=== PATIENT | male | born 1980 | race Caucasian/White ===

== ENCOUNTER 2017-09-16 12:24 | Outpatient (CLI) | payer BC ==
--- NOTE | 2017-09-16 15:02 | ULT ---
TESTICULAR ULTRASOUND: Date: 09/16/17 HISTORY: Testicular pain. FINDINGS: Right testicle measures 5.3 cm x 3.4 cm x 2.8 cm. Left testicle measures 5.2 cm x 3.5 cm x 2.9 cm. Th ere is slight heterogeneity of each testicle, which is a symmetric finding bilaterally. No testicular mass is present. There are a few very tiny punctate foci of increased echogenicity in the left testi cindy, likely related to testicular microlithiasis. Doppler evaluation of each testicle with spectral analysis and color flow evaluation demonstrates art erial and venous flow in each testicle. There is a small hypoechoic structure within the right epididymis measuring 0.5 cm, which may represe nt a small spermatocele. There is also a small anechoic structure seen in the left epididymal head me asuring 0.3 cm, probably related to a small epididymal cyst. There is a small left hydrocele with physiologic amount of fluid adjacent to the right testicle. IMPRESSION: 1. 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 Testicles otherwise have a normal sonographi c appearance with arterial and venous flow documented in each testicle. 2. Small epididymal cyst versus spermatocele in the right epididymal head with tiny epididymal cyst in the left epididymal head. 3. Very small left hydrocele. POS: [facility]
== END 2017-09-16 12:25 | disposition home or self-care (01) ==
LOC: ULT 12:24
PROVIDERS: ATTEND Family Medicine
DX: N50.819 Testicular pain, unspecified (principal); N43.3 Hydrocele, unspecified
CPT/HCPCS: 76870; 93976

== ENCOUNTER 2018-09-22 12:18 | Day surgery (SDC) | payer BC ==
[2018-09-21 11:25] VITALS: BMI 39.9
[~2018-09-22 12:18] MED LIST: Dexamethasone 20 MG/5 ML VIAL ONE; Glycopyrrolate 0.2 MG/ML 5 ML SYRINGE ONE; Lidocaine 1% PF 5 ML VIAL ONE; Ondansetron PF 4 MG/2 ML Vial ONE; PROPOFOL 200 MG/20 ML VIAL ONE; Rocuronium Bromide 10 MG/ML (10ML VIAL) ONE
[2018-09-22] MEDS ORDERED: Oxymetazoline HCl 0.05% ( 15 ML ) ONE (12:43)
[2018-09-22] MEDS ORDERED: Bacitracin Zinc Ointment 30 gm TUBE ONE (13:57)
[2018-09-22] MEDS ORDERED: Oxymetazoline HCl 0.05% (30 ML BOT) ONE (13:57)
[2018-09-22] MEDS ORDERED: Lidocaine 1% w/Epinephrine 1:100K 20 ML VIAL ONE (13:57)
[2018-09-22] MEDS ORDERED: Fentanyl 100 MCG/2 ML VIAL ONE ×2 (13:59→16:07)
[2018-09-22] MEDS ORDERED: Midazolam HCl 2 mg/2 ml Vial ONE (13:59)
[2018-09-22] MEDS ORDERED: Meperidine HCl/PF 25 MG/ML VIAL ONE (15:45)
[2018-09-22] MEDS ORDERED: Hydrocodone-Acetamin 15 ML UDCUP ONE (17:15)
--- NOTE | 2018-09-23 13:02 | OP ---
DATE OF PROCEDURE: 09/22/2018 PREOPERATIVE DIAGNOSES: Chronic sinusitis, nasal polyposis, bilateral champ bullosa, deviated septum with spur, hypertrophied inferior turbinates. POSTOPERATIVE DIAGNOSES: Chronic sinusitis, nasal polyposis, bilateral champ bullosa, deviated septum with spur, hypertrophied inferior turbinates. PROCEDURES PERFORMED: 1. Bilateral nasal endoscopy with resection of champ bullosa. 2. Bilateral nasal endoscopy with total ethmoidectomy. 3. Bilateral nasal endoscopy with maxillary antrostomy. 4. Bilateral nasal endoscopy with sphenoidotomy. 5. Bilateral nasal endoscopy with frontal sinusotomy. 6. Septoplasty. 7. Bilateral nasal endoscopy with submucosal resection of inferior turbinates. DESCRIPTION OF PROCEDURE: BILATERAL NASAL ENDOSCOPY WITH RESECTION OF CHAMP BULLOSA: The champ bullosa was identified and entered with a sickle blade. The lateral aspect of the champ bullosa was meticulously resected while leaving the medial most aspect to form the new middle turbinate. Attention was made not to violate the mucosa. The straight biting punches and micro-debrider were used to remove shrouds of mucosa and bony debris. BILATERAL NASAL ENDOSCOPY WITH TOTAL ETHMOIDECTOMY: The anterior face of the ethmoid bulla was entered and with the micro-debrider, dissection continued posteriorly to the ground lamella. The limits of dissection included the insertion of the middle turbinate, medial orbital wall, and base of skull. We similarly identified the frontal recess and removed shrouds of bone and debris in that region to obtain patency into the agger nasi region and frontal recess. We then entered the ground lamella and its anteroinferior aspect and proceeded posteriorly, opening the posterior ethmoid air-cell system. Again, the limits of dissection included the base of skull and medial orbital wall. BILATERAL NASAL ENDOSCOPY WITH MAXILLARY ANTROSTOMY: The uncinate was then identified and the extent of the uncinate was appreciated by out-fracturing the uncinate with the ball-tip probe. We then used the sickle blade to disarticulate the uncinate from the lateral nasal wall. This was then removed with straight biting and upbiting punches with the remaining shrouds of mucosa and bony septum removed with the micro-debrider. The natural os of the maxillary sinus was then identified and enlarged with the maxillary punches and back biting forceps. BILATERAL NASAL ENDOSCOPY WITH SPHENOIDOTOMY: The anterior face of the sphenoid was identified and entered in its extreme anteroinferior aspect. A sphenoid punch was then used to enlarge the sphenoidotomy and no injury to the optic nerve or internal carotid artery occurred. BILATERAL NASAL ENDOSCOPY WITH FRONTAL SINUSOTOMY: Following the ethmoidectomy, we then turned our attention to the frontal nasal recess. The agger nasi cells were addressed and the frontal recess was exposed. The natural opening to the frontal sinus was identified. At this point, any obstructing shrouds of mucosa and bony fragments were removed with a curved microdebrider. The wound was then examined and found to be free of any obstructing debris. We then turned our attention to the contralateral side and performed a similar procedure again under endoscopic visualization using a 45-degree scope. We were able to visualize the frontal recess. Obstructing shrouds of mucosa and bone were removed with a microdebrider. The natural os of frontal sinus was identified and enlarged and irrigated. At this point, the frontal sinusotomy was completed and we turned to the next area of concern. SEPTOPLASTY: After local anesthesia was infiltrated into the submucoperichondrial plane, a standard [place] incision was made with a #15 blade down to the level of the septal cartilage. The caudal elevator was used to elevate the mucoperichondrium from the underlying cartilage. We then proceeded beyond the bony cartilaginous junction and elevated the bony periosteum as well. Great attention was paid to the spur to prevent rent formation in the septal flap. A transcartilaginous incision was then made, while preserving an adequate dorsal and caudal cartilaginous strut for tip support. The deformed cartilage was removed and disarticulated from the bony cartilaginous junction and maxillary crest. This was placed in saline and would later be crushed and returned to the mucoperichondrial envelope. We then elevated the contralateral periosteum from the bony cartilaginous region and removed the deformed portions of the bone and bony spurs. The cartilage was then crushed and placed back into the mucoperichondrial envelope and the mucosa was re-approximated with a quilting stitch composed of rapidly absorbent gut suture. The [place] incision was also closed with interrupted gut suture. At the completion of the case, Leigh splints were placed and suture secured to the caudal septum. BILATERAL NASAL ENDOSCOPY WITH SUBMUCOSAL RESECTION OF INFERIOR TURBINATES: After consent was obtained, the patient was identified, brought to the operating room, and placed on the operating room table in the supine position. Consent was obtained, notifying the patient of the possibility of additional infections, bleeding, brain injury, and eye/orbital injury. The patient was placed on the operating room table, and general endotracheal anesthesia and intravenous access was obtained. The patient was then positioned, prepped and draped for endoscopic sinus surgery. Nasal preparation included trimming nasal vestibular hairs and spraying in topical Afrin. We then placed Afrin topical solution on nasal pledgets and strategically located them intranasally. The perinasal mucosa was injected with 1% lidocaine with 1:100,000 epinephrine in the submucoperichondrial plane of the septum, lateral nasal wall, and anterior to the uncinate. The patient was then prepped and draped in a sterile fashion and positioned for endoscopic sinus surgery. With the 0-degree endoscope, the patient underwent systematic nasal endoscopy. There were no suspicious internasal masses or lesions identified. We then focused our attention to the osteomeatal complex region under the middle turbinate. The inferior turbinates were visualized with a 0 degree endoscope and outfractured with a Fisher elevator. The inferior medial aspect was cauterized with the electrocautery. Hemostasis was obtained . After adequate airway was established, we turned our attention to the contralateral side and used a similar procedure. Again, a Esdras elevator was used to outfracture inferior turbinates under endoscopic visualization. With a suction cautery, the free inferior medial aspect was cauterized under direct visualization along the length of the inferior turbinate. At this point, we then turned our attention to the contralateral side and proceeded with endoscopic sinus surgery. At the completion of the case, Rice keel splints were placed in the ethmoid cavities after the ethmoidectomy. There were no complications. The patient tolerated the procedure well and was discharged to the recovery room in stable condition prior to return to the preoperative day stay with ultimate discharge home. Prescriptions for pain medication and antibiotics were provided. The patient received intramuscular Depo-Medrol during the case. Job ID: [id number]
== END 2018-09-22 18:10 | disposition home or self-care (01) ==
LOC: SDC 12:18
PROVIDERS: ATTEND Specialist
PROC: 09SL8ZZ Reposition Nasal Turbinate, Via Natural or Artificial Opening Endoscopic (ICD-10-PCS; principal; 2018-09-22)
PROC: 099T8ZZ Drainage of Left Frontal Sinus, Via Natural or Artificial Opening Endoscopic (ICD-10-PCS; principal; 2018-09-22)
PROC: 099S8ZZ Drainage of Right Frontal Sinus, Via Natural or Artificial Opening Endoscopic (ICD-10-PCS; principal; 2018-09-22)
PROC: 09SM0ZZ Reposition Nasal Septum, Open Approach (ICD-10-PCS; principal; 2018-09-22)
PROC: 099X8ZZ Drainage of Left Sphenoid Sinus, Via Natural or Artificial Opening Endoscopic (ICD-10-PCS; principal; 2018-09-22)
PROC: 099W8ZZ Drainage of Right Sphenoid Sinus, Via Natural or Artificial Opening Endoscopic (ICD-10-PCS; principal; 2018-09-22)
PROC: 09TV8ZZ Resection of Left Ethmoid Sinus, Via Natural or Artificial Opening Endoscopic (ICD-10-PCS; principal; 2018-09-22)
PROC: 09TL8ZZ Resection of Nasal Turbinate, Via Natural or Artificial Opening Endoscopic (ICD-10-PCS; principal; 2018-09-22)
PROC: 09TU8ZZ Resection of Right Ethmoid Sinus, Via Natural or Artificial Opening Endoscopic (ICD-10-PCS; principal; 2018-09-22)
PROC: 099R8ZZ Drainage of Left Maxillary Sinus, Via Natural or Artificial Opening Endoscopic (ICD-10-PCS; principal; 2018-09-22)
PROC: 099Q8ZZ Drainage of Right Maxillary Sinus, Via Natural or Artificial Opening Endoscopic (ICD-10-PCS; principal; 2018-09-22)
DX: J32.9 Chronic sinusitis, unspecified (principal); J33.8 Other polyp of sinus; J34.89 Other specified disorders of nose and nasal sinuses; J34.2 Deviated nasal septum; J34.3 Hypertrophy of nasal turbinates; F32.9 Major depressive disorder, single episode, unspecified; F90.9 Attention-deficit hyperactivity disorder, unspecified type; Z79.899 Other long term (current) drug therapy
CPT/HCPCS: J1100; J2001; J2175; J2250; J2405; J2704; J3010

== ENCOUNTER 2019-06-04 19:14 | Emergency (ER) | payer BC ==
[2019-06-04] MEDS ORDERED: Morphine 10 MG/ML VIAL ONE ×2 (19:39→20:44)
[2019-06-04] MEDS ORDERED: Ondansetron PF 4 MG/2 ML Vial ONE (19:39)
[2019-06-04 19:49] LABS: #Basophils 0.1 thou/uL (0.0-0.2); #Eosinphils 0.4 thou/uL (0.0-0.7); #Lymphocytes 4.3 thou/uL (1.20-3.40); #Neutrophils 6.3 thou/uL (1.40-6.50); %Basophils 1.1 % (0.0-1.0); %Lymphocytes 35.4 % (21.0-51.0); %Monocytes 8.1 % (0.0-10.0); %Neutrophils 52.4 % (42.0-75.0); Hemoglobin 15.3 g/dL (14.0-18.0); Mean Corpuscular Hemoglobin 28.7 pg (27.0-31.0); Mean Corpuscular Volume 84.5 fL (78.0-98.0); Mean Platelet Volume 9.1 fL (7.4-10.4); Platelet Count 256 thou/uL (130-400); RBC Distribution Width 11.4 % (11.5-14.5); Red Blood Cell (RBC) Count 5.32 mill/uL (4.70-6.10); White Blood Cell (WBC) Count 12.1 thou/uL (4.8-10.8)
[2019-06-04 20:03] LABS: ALT (SGPT) 27 U/L (8-55); AST (SGOT) 18 U/L (5-34); Albumin 4.3 g/dL (3.5-5.0); Alkaline Phosphatase 57 U/L (40-110); Anion Gap 16 mmol/L (10-20); BUN (Urea Nitrogen) 19 mg/dL (8.9-20.6); Bilirubin, Total 0.4 mg/dL (0.2-1.2); Calc. Creatinine Clearance 0 mL/min (70-130); Calcium 8.7 mg/dL (7.8-10.44); Carbon Dioxide 24 mmol/L (22-29); Chloride 105 mmol/L (98-107); Estimated GFR-MDRD 47; Globulin 2.7 g/dL (2.4-3.5); Glucose 102 mg/dL (70-105); Potassium 3.6 mmol/L (3.5-5.1); Sodium 141 mmol/L (136-145)
[2019-06-04 20:09] LABS: Bilirubin Negative (Negative); Blood, Urine Small (Negative); Clarity Clear (Clear); Glucose, Urine (Dipstick) Negative (Negative); Leukocyte Negative (Negative); Nitrite Negative (Negative); Protein, Urine (Dipstick) Negative (Neg-Trace); Urobilinogen 0.2 mg/dL (Less than 2)
[2019-06-04 20:13] LABS: Bacteria/HPF Rare-Few HPF (None Seen); Squamous Epithelial None Seen HPF (0-3); WBC/HPF None Seen HPF (0-3)
[2019-06-04] MEDS ORDERED: HYDROcodone/Acetaminophen 10/325 mg Tablet ONE (21:29)
--- NOTE | 2019-06-04 21:38 | CT ---
CT ABDOMEN AND PELVIS WITHOUT CONTRAST: Date: 06/04/19 HISTORY: Left-sided abdominal and flank pain. FINDINGS: Absence of oral and IV contrast reduces the sensitivity of exam, particularly for evaluation of solid organs and bowel. The lung bases are unremarkable. No free air or free fluid is seen in the abdomen or pelvis. No calci fied gallstones are noted. A tiny appendicolith is seen. The appendix is otherwise normal. No calculi seen in either kidney, right ureter, or the urinary bladder. There is a 4 mm calculus in t he left UPJ with mild left-sided hydronephrosis. No right-sided hydroureteronephrosis is seen. There are small bilateral fat-containing inguinal hernia. No acute osseous abnormalities noted. IMPRESSION: 4 mm left UPJ calculus with mild hydronephrosis. POS: [facility]
--- NOTE | 2019-06-04 21:48 | ULT ---
BILATERAL TESTICULAR ULTRASOUND WITH PATINO SCALE AND COLOR FLOW AND SPECTRAL DOPPLER IMAGING: Date: 06/04/19 HISTORY: 39-year-old male with left-sided testicular pain. Patient had vasectomy 2 years ago. FINDINGS: The right testis measures 5.1 x 2.8 x 3.2 cm. The left testis measures 5.3 x 2.7 x 3.3 cm. No testicular mass or microlithiasis seen. Symmetric flow seen to the tests and epididymides. There are small bilateral hydroceles. A 5 mm epididymal head cyst is seen on the left. IMPRESSION: 1. No evidence of testicular mass or torsion. 2. 5 mm left epididymal head cyst/spermatocele. POS: [facility]
== END 2019-06-04 22:18 | disposition home or self-care (01) ==
LOC: SCSER 19:14
DX: N13.2 Hydronephrosis with renal and ureteral calculous obstruction (principal); F43.10 Post-traumatic stress disorder, unspecified
CPT/HCPCS: 74176; 76870; 80053; 81003; 81015; 85025; 93976; 96361; 96374; 96375; 96376; J2270; J2405

== ENCOUNTER 2019-06-08 19:00 | Outpatient (CLI) | payer BC | END 2019-06-08 19:01 | disposition home or self-care (01) | LOC: SLEEPLAB 19:00 | PROVIDERS: ATTEND Otolaryngology Otolaryngic Allergy | DX: G47.33 Obstructive sleep apnea (adult) (pediatric) (principal); G47.9 Sleep disorder, unspecified; R06.83 Snoring | CPT/HCPCS: 95806 ==

== ENCOUNTER 2020-08-19 21:25 | Emergency (ER) | payer BC ==
[~2020-08-19 21:25] MED LIST changes: -Dexamethasone 20 MG/5 ML VIAL ONE; -Glycopyrrolate 0.2 MG/ML 5 ML SYRINGE ONE; +Iopamidol-370 76% 500 ML 1 ML ONE; -Lidocaine 1% PF 5 ML VIAL ONE; -Ondansetron PF 4 MG/2 ML Vial ONE; -PROPOFOL 200 MG/20 ML VIAL ONE; -Rocuronium Bromide 10 MG/ML (10ML VIAL) ONE
[2020-08-19 21:55] LABS: #Lymphocytes 1.1 thou/uL (1.20-3.40); #Monocytes 0.7 thou/uL (0.11-0.59); #Neutrophils 5.8 thou/uL (1.40-6.50); %Basophils 0.4 % (0.0-1.0); %Lymphocytes 14.9 % (21.0-51.0); %Monocytes 8.7 % (0.0-10.0); Hemoglobin 15.8 g/dL (14.0-18.0); Mean Corpuscular HGB CONC 34.6 g/dL (32.0-36.0); Mean Corpuscular Volume 86.8 fL (78.0-98.0); Mean Platelet Volume 7.4 fL (7.4-10.4); Platelet Count 205 thou/uL (130-400); RBC Distribution Width 11.7 % (11.5-14.5); Red Blood Cell (RBC) Count 5.25 mill/uL (4.70-6.10); White Blood Cell (WBC) Count 7.6 thou/uL (4.8-10.8)
[2020-08-19 22:05] LABS: ALT (SGPT) 48 U/L (8-55); AST (SGOT) 36 U/L (5-34); Alkaline Phosphatase 52 U/L (40-110); Anion Gap 12 mmol/L (10-20); BUN (Urea Nitrogen) 13 mg/dL (8.9-20.6); Bilirubin, Total 0.5 mg/dL (0.2-1.2); Calc. Creatinine Clearance 0 mL/min (70-130); Calcium 8.2 mg/dL (7.8-10.44); Carbon Dioxide 26 mmol/L (22-29); Chloride 108 mmol/L (98-107); Globulin 3.3 g/dL (2.4-3.5); Glucose 118 mg/dL (70-105); Potassium 3.8 mmol/L (3.5-5.1); Protein, Total 7.3 g/dL (6.0-8.3); Sodium 142 mmol/L (136-145)
--- NOTE | 2020-08-19 22:09 | RAD ---
EXAM: CHEST ONE VIEW HISTORY: Dyspnea and shortness of breath. Low oxygen saturation. Patient diagnosed with Covid pneumonia COMPARISON: 08/18/2020 FINDINGS: Cardiac silhouette is magnified by projection. Patchy parenchymal airspace opacities are seen in the perihilar regions bilaterally mildly increased at each lung base compared to prior exam but mildly improved in the right upper lung zone. No pleural effusion is seen. Postoperative changes lower cervi nola spine are again seen. IMPRESSION: Covid pneumonia with mild improvement in parenchymal opacity in the right upper lung zone with slight increase in patchy airspace opacities at each lung base.
[2020-08-19] MEDS ORDERED: methylPREDNISolone Sod Succ/PF 125 MG/2 ML VIAL ONE (22:23)
--- NOTE | 2020-08-19 22:51 | CT ---
CT ANGIOGRAM THORAX WITH IV CONTRAST AND 3-D RECONSTRUCTIONS CLINICAL INDICATION: Dyspnea. Acute worsening shortness of breath. Covid pneumonia. COMPARISON: None FINDINGS: Pulmonary arteries: No filling defects are seen in the central or segmental pulmonary arteries to sug gest a pulmonary embolus. Aorta: The aorta is normal in caliber without evidence of an aortic dissection. Lungs: Diffuse scattered groundglass densities are seen throughout the lungs bilaterally in a pattern typical for Covid pneumonia. No pleural effusion is evident. Mediastinum: Few mildly prominent mediastinal and hilar lymph nodes are seen which are nonspecific bu t likely related to mild reactive lymphadenopathy. Thyroid gland: Normal CT appearance. Osseous structures: Postoperative changes lower cervical spine are seen. Chest wall: No abnormality visualized. Upper abdomen: Mild diminished attenuation of the liver relative to the spleen suggesting mild hepati c steatosis. IMPRESSION: 1. No CT evidence of a pulmonary embolus. 2. Covid pneumonia. 3. Hepatic steatosis.
== END 2020-08-20 01:09 | disposition home or self-care (01) ==
LOC: ERS 21:25
DX: U07.1 COVID-19 (principal); J12.82 Pneumonia due to coronavirus disease 2019
CPT/HCPCS: 71045; 71275; 80053; 83880; 84484; 85025; 85379; 93005; 96374; J2930; J7620; Q9967

== ENCOUNTER 2020-10-07 09:05 | Outpatient (CLI) | payer BC | END 2020-10-07 09:06 | disposition home or self-care (01) | LOC: BICRAD 09:05 | PROVIDERS: ATTEND Internal Medicine Critical Care Medicine | DX: R06.00 Dyspnea, unspecified (principal) | CPT/HCPCS: 71046 ==

== ENCOUNTER 2023-02-26 14:17 | Outpatient (CLI) | payer BC | END 2023-02-26 14:18 | disposition home or self-care (01) | LOC: BICMRI 14:17 | PROVIDERS: ATTEND Neurological Surgery | DX: M54.12 Radiculopathy, cervical region (principal); S06.9X0A Unspecified intracranial injury without loss of consciousness, initial encounter; M50.31 Other cervical disc degeneration, high cervical region; M50.322 Other cervical disc degeneration at C5-C6 level | CPT/HCPCS: 70551; 72141 ==

== ENCOUNTER 2024-05-18 16:08 | Outpatient (CLI) | payer BC | END 2024-05-18 16:09 | disposition home or self-care (01) | LOC: SCSRAD 16:08 | PROVIDERS: ATTEND Internal Medicine | DX: R07.81 Pleurodynia (principal) | CPT/HCPCS: 71046 ==

== ENCOUNTER 2025-02-15 14:25 | Outpatient (CLI) | payer BC | END 2025-02-15 14:26 | disposition home or self-care (01) | LOC: SCSMRI 14:25 | PROVIDERS: ATTEND Family Medicine | DX: M47.26 Other spondylosis with radiculopathy, lumbar region (principal); M21.371 Foot drop, right foot; M51.16 Intervertebral disc disorders with radiculopathy, lumbar region; M48.061 Spinal stenosis, lumbar region without neurogenic claudication | CPT/HCPCS: 72148 ==